=== PATIENT | female | born 1980 | race Caucasian/White ===

== ENCOUNTER → 2023-08-20 | Outpatient (CLI) | payer BC ==
--- NOTE | 2023-08-22 00:40 | MM ---
Reason for Exam: Screening (asymptomatic). Baseline mammogram. Patient History: Menarche at age 13. First Full-Term at age 17. Patient has history of breast feeding. Last menstrual period: 07/31/2023 Risk Values: Azra 5 year model risk: 0.5%. NCI Lifetime model risk: 7.1%. Prior Study Comparison: Patient's first Mammogram. Tissue Density: The breasts are heterogeneously dense, which may obscure small masses. Findings: Analyzed By CAD. The pattern is symmetrical. There is a nodule within the lower inner aspect left breast. Additional workup with compression views is recommended. Ultrasound may be required. Right breast:No suspicious groups of microcalcifications, spiculated or lobular masses, architectural distortion or other secondary signs of malignancy are mammographically apparent. Overall Assessment: Incomplete: need additional imaging evaluation, BI-RAD 0 Management: Diagnostic Mammogram of the left breast. Diagnostic Breast Ultrasound of the left breast. A negative mammogram report should not preclude additional follow up of suspicious palpable abnormalities. Patient should continue monthly self breast exam. A clinical breast exam by your physician is recommended on an annual basis and results should be correlated with mammographic findings. Electronically signed and approved by: Stephen Tian D.O. Radiologis
== END | disposition home or self-care (01) ==
LOC: RADMAMWWP 15:22
PROVIDERS: ATTEND Family Medicine
DX: Z12.31 Encounter for screening mammogram for malignant neoplasm of breast (principal)
CPT/HCPCS: 77063; 77067

== ENCOUNTER → 2023-08-23 | Outpatient (CLI) | payer BC ==
--- NOTE | 2023-08-23 13:56 | MM ---
Reason for Exam: Additional evaluation requested from abnormal screening. Last screening mammogram was performed less than 1 month ago. Patient History: Menarche at age 13. First Full-Term at age 17. Patient has history of breast feeding. Risk Values: Azra 5 year model risk: 0.5%. NCI Lifetime model risk: 7.1%. Prior Study Comparison: 08/20/2023 Bilateral MG 3D screening mammo w/cad, [facility]. Tissue Density: Left: The breasts are heterogeneously dense, which may obscure small masses. Findings: Analyzed By CAD. Nodular density persists in the lower left breast 10 cm from the nipple measuring 7 to 8 mm. Ultrasound recommended. Overall Assessment: Incomplete: need additional imaging evaluation, BI-RAD 0 Management: Diagnostic Breast Ultrasound of the left breast. . Results were given to the patient verbally at the time of exam. Patient should continue monthly self-breast exams. A clinical breast exam by your physician is recommended on an annual basis. This exam should not preclude additional follow-up of suspicious palpable abnormalities. Note on Azra scores and lifetime risk: 1. A Azra score greater than 3% is considered moderate risk. If this is the case, consider specialist referral to assess eligibility for a risk reducing agent. 2. If overall lifetime risk for the development of breast cancer is 20% or higher, the patient may qualify for future screening with alternating mammogram and breast MRI. Electronically signed and approved by: Amador Rowe M.D. Radiologis
--- NOTE | 2023-08-23 14:53 | USB ---
Reason for Exam: Additional evaluation requested from abnormal screening. Patient History: Menarche at age 13. First Full-Term at age 17. Patient has history of breast feeding. Risk Values: Azra 5 year model risk: 0.5%. NCI Lifetime model risk: 7.1%. Technique: Method: Targeted. Prior Study Comparison: 08/20/2023 Bilateral MG 3D screening mammo w/cad, [facility]. Findings: The lower inner quadrant of the left breast, the axilla of the left breast and the retroareolar of the left breast were scanned. At the left 8:00 position 8 cm from the nipple there is a septated cystic structure measuring 7 x 5 x 5 mm. Additional tiny too small to characterize cyst lesion at left 6:00 8 cm from the nipple 3 mm. Borderline thickened cortex of a left axillary lymph node measuring 3 mm. Six-month follow-up of these findings recommended. Overall Assessment: Probably benign, BI-RAD 3 Management: Diagnostic Breast Ultrasound of the left breast in 6 months. A clinical breast exam by your physician is recommended on an annual basis and results should be correlated with mammographic findings. This exam should not preclude additional follow-up of suspicious palpable abnormalities. Results were given to the patient verbally at the time of exam. Electronically signed and approved by: Amador Rowe M.D. Radiologis
== END | disposition home or self-care (01) ==
LOC: RADMAMWWP 13:26
PROVIDERS: ATTEND Family Medicine
DX: N60.02 Solitary cyst of left breast (principal); R92.332 Mammographic heterogeneous density, left breast
CPT/HCPCS: 77061; 77065

== ENCOUNTER → 2024-09-02 | Outpatient (CLI) | payer BC ==
--- NOTE | 2024-09-02 12:28 | CA ---
Transthoracic Echo Report Name: Jerardo Conner Age: 44 Gender: F : 1980 Exam Date: 09/02/2024 10:07 Exam Location: [facility] Ht (in): 61 Wt (lb): 180 Ordering Physician: Jt Zurita DO Attending/Referring Phys: Drag Out Worker Donte Durbin RDCS Procedure CPT: Indications: R07.89 chest pain Cardiac Hx: Technical Quality: Good Contrast 1: Total Dose (mL): Contrast 2: Total Dose (mL): MEASUREMENTS (Male / Female) Normal Values 2D ECHO LV Diastolic Diameter PLAX 5.0 cm 4.2 - 5.9 / 3.9 - 5.3 cm LV Systolic Diameter PLAX 3.4 cm IVS Diastolic Thickness 1.0 cm 0.6 - 1.0 / 0.6 - 0.9 cm LVPW Diastolic Thickness 0.9 cm 0.6 - 1.0 / 0.6 - 0.9 cm LV Relative Wall Thickness 0.4 RV Internal Dim ED PLAX 3.1 cm LVOT Diameter 1.8 cm LA Systolic Diameter LX 3.5 cm 3.0 - 4.0 / 2.7 - 3.8 cm LV Diastolic Volume MOD BP 92.9 cm??? 67 - 155 / 56 - 104 cm??? LV Systolic Volume MOD BP 43.0 cm??? - / 19 - 49 cm??? LV Ejection Fraction MOD BP 53.7 % >= 55 % LV Cardiac Index MOD BP 1959.3 cm???/min???m??? LV Diastolic Volume MOD 4C 94.1 cm??? LV Systolic Volume MOD 4C 43.9 cm??? LV Ejection Fraction MOD 4C 53.4 % LV Cardiac Index MOD 4C 1971.4 cm???/min???m??? LV Diastolic Length 4C 7.9 cm LV Systolic Length 4C 6.6 cm LV Diastolic Volume MOD 2C 88.0 cm??? LV Systolic Volume MOD 2C 40.8 cm??? LV Ejection Fraction MOD 2C 53.7 % LV Cardiac Index MOD 2C 1851.9 cm???/min???m??? LV Diastolic Length 2C 7.5 cm LV Systolic Length 2C 6.4 cm LA Volume 36.4 cm??? - 58 / 22 - 52 cm??? LA Volume Index 19.0 cm???/m??? 16 - 28 cm???/m??? DOPPLER MV Area PHT 3.5 cm??? Mitral E Point Velocity 63.7 cm/s Mitral A Point Velocity 69.5 cm/s Mitral E to A Ratio 0.9 MV Deceleration Time 218.9 ms TR Peak Velocity 234.6 cm/s TR Peak Gradient 22.0 mmHg Right Atrial Pressure 5.0 mmHg Pulmonary Artery Systolic Pressu 27.0 mmHg Right Ventricular Systolic Press 27.0 mmHg FINDINGS Left Ventricle Left ventricular ejection fraction is estimated at 50-55 %. Mildly decreased left ventricular ejection fraction. Normal Left ventricular size, wall thickness, no obvious regional wall motion abnormalities. Right Ventricle Normal function. Right ventricular systolic pressure within normal limits. Normal right ventricular size. Right Atrium Normal right atrial size. Left Atrium Normal left atrial size. Mitral Valve Mitral valve thickened. No mitral stenosis. Trace mitral regurgitation. Aortic Valve Trileaflet aortic valve. No aortic stenosis. No aortic regurgitation. Tricuspid Valve Structurally normal tricuspid valve. No tricuspid stenosis. Trace tricuspid regurgitation. Pulmonic Valve Structurally normal pulmonic valve. No pulmonic stenosis. No pulmonic regurgitation. Pericardium No pericardial effusion. No pleural effusion. Aorta Normal size aortic root and proximal ascending aorta. CONCLUSIONS LVEF 50% Mildly decreased global LV systolic function No obvious regional wall motion abnormality No significant valvular dysfunction other than trace MR and trace TR Previewed by: Dr Ulises Valdez (Electronically Signed) Final Date: 02 September 2024 12:28
--- NOTE | 2024-09-02 12:36 | CA ---
Exercise Stress Test Report Name: Jerardo Conner Exam Date: 09/02/2024 11:08 Exam Location: [facility] Ht (in): 61 Wt (lb): 180 BSA: 1.81 Ordering Phys: Jt Zurita DO Referring Phys: MILAD Technologist: Edis Costa Age: 44 Gender: F : 1980 Procedure CPT: Indications: R07.89 chest pain ICD-10 Codes: Patient History: DIFFICULTY IN BREATHING, HTN, CURRENT SMOKER 1 PPD X 30 YEARS, ASTHMA Medications: LOSARTAN, ADDERRALL Meds past 24 hrs: Pretest Chest Pain: STRESS TEST Armando Protocol Exercise Duration (min:sec): 09:[address] Depressions (mm): Angina Score: Wade Score: Resting HR (bpm): 90 Peak HR (bpm): 159 Resting BP (mmHg): 134 / 88 Peak BP (mmHg): 184 / 87 MPHR: 176 Target HR: 150 % MPHR: 90 METS: 10.3 Total Dose: Peak Dose: Atropine: Double Product: 70894 BP Response: Stress Termination: TARGET HR REACHED/MAX EXERTION Stress Symptoms: DIZZINESS Stress Summary: ECG ANALYSIS Resting ECG: Normal sinus rhythm, heart rate 75 bpm Stress ECG: No significant ST-T wave changes that are diagnostic for ischemia No significant arrhythmia or ectopic beats noticed during the stress test CONCLUSIONS Good exercise tolerance for age achieving 10.3 METS Normal hemodynamic and clinical response to treadmill exercise Nonischemic ECG response to treadmill exercise Overall low probability for severe obstructive CAD Dr Ulises Valdez (Electronically Signed) Final Date: 02 September 2024 12:36
== END | disposition home or self-care (01) ==
LOC: RADECHMAIN 10:02
PROVIDERS: ATTEND Family Medicine
DX: I10 Essential (primary) hypertension (principal); R07.89 Other chest pain; F17.210 Nicotine dependence, cigarettes, uncomplicated
CPT/HCPCS: 93017; 93306